=== PATIENT | male | born 1975 | race African-American/Black ===

== ENCOUNTER 2018-08-06 18:22 | Emergency (ER) | payer SELFPAY ==
[~2018-08-06] VITALS: Ht 172.7 cm; Wt 75.0 kg
[2018-08-06 18:29] VITALS: BP 148/98
== END 2018-08-06 19:02 | disposition left against medical advice (07) ==
LOC: ER 18:22
DX: Z53.21 Procedure and treatment not carried out due to patient leaving prior to being seen by health care provider (principal)